=== PATIENT | male | born 1995 | race Caucasian/White ===

== ENCOUNTER 2022-01-19 12:17 | Emergency (ER) | payer OTHER ==
[~2022-01-19] VITALS: Ht 170.2 cm; Wt 61.2 kg
== END 2022-01-19 14:55 | disposition home or self-care (01) ==
LOC: ER 12:17
DX: S61.211A Laceration without foreign body of left index finger without damage to nail, initial encounter (principal); Z23 Encounter for immunization; W26.0XXA Contact with knife, initial encounter
CPT/HCPCS: 12001; 90471; 90714; 99282-25

== ENCOUNTER 2022-01-26 19:05 | Emergency (ER) | payer OTHER ==
[~2022-01-26] VITALS: Ht 170.2 cm; Wt 61.2 kg
== END 2022-01-26 20:21 | disposition home or self-care (01) ==
LOC: ER 19:05
DX: Z48.02 Encounter for removal of sutures (principal)
CPT/HCPCS: 99281